=== PATIENT | female | born 2000 | race Caucasian/White ===

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

== ENCOUNTER 2019-03-15 10:06 | Emergency (ER) | payer SELFPAY ==
[~2019-03-15] VITALS: Ht 160 cm; Wt 63.3 kg
[~2019-03-15 10:06] MED LIST: AMOX1TAB10 PO; DOXY100T20 PO; IBUP-1542 PO; IBUP-1561 PO; LOPE2CAP PO; METR500T PO; ONDA4TAB14 PO; ONDA4TAB8 PO
[2019-03-15 10:07] VITALS: BP 112/75; PULSE 66; RESP 18; Ht 160 cm; Wt 63.3 kg
--- NOTE | 2019-03-15 10:40 | ERD ---
ER Documentation Chief Complaint Chief Complaint Pt with pain L wisdom pain X 1 months HPI Patient is a 18-year-old female who presents the ER for concerns of left lower wisdom tooth pain for the last month. Patient has not seen a dentist. She states she last saw the dentist 2 years ago. She denies fevers or chills. She denies any drooling, trismus, hyper extension of her neck. ROS All systems reviewed and are negative except as per history of present illness. Medications Home Meds Active Scripts Amoxicillin/Potassium Clav (Amox-Clav 875-125 mg Tablet) 875-125 mg Tab, 1 TAB PO BID for 7 Days, #14 TAB Prov:HAL MAYORGA PA-C 03/15/19 Ibuprofen* (Motrin*) 600 Mg Tab, 600 MG PO Q6, #30 TAB Prov:HAL MAYORGA PA-C 03/15/19 Ondansetron (Ondansetron Odt) 4 Mg Tab.rapdis, 4 MG PO Q6H PRN for NAUSEA AND/OR VOMITING, #10 TAB Prov:HECTOR PALOMARES PA-C 12/18/17 Ibuprofen* (Ibuprofen*) 600 Mg Tablet, 600 MG PO Q6 for 5 Days, TAB Prov:RENA BRICE 11/06/17 Loperamide Hcl* (Imodium*) 2 Mg Capsule, 2 MG PO .AFTER EA LOOSE BM PRN for DIARRHEA, #10 TAB Prov:RENA BRICE 11/06/17 Ondansetron Hcl* (Zofran*) 4 Mg Tablet, 4 MG PO Q6H for NAUSEA AND/OR VOMITING, #30 TAB Prov:RENA BRICE 11/06/17 Ibuprofen* (Motrin*) 400 Mg Tab, 400 MG PO Q6H PRN for PAIN AND OR ELEVATED TEMP, #30 TAB Prov:JANNA GREENE PA-C 10/15/17 Ibuprofen* (Motrin*) 600 Mg Tab, 600 MG PO Q6, #30 TAB Prov:KINDRA,BRADLEY 07/20/17 Doxycycline Hyclate* (Doxycycline Hyclate*) 100 Mg Tablet.dr, 100 MG PO BID for 14 Days, TAB Prov:KINDRA,BRADLEY 07/20/17 Metronidazole* (Flagyl*) 500 Mg Tablet, 500 MG PO BID for 14 Days, TAB Prov:BRADLEY ARGUELLES 07/20/17 Reported Medications [None] No Conflict Check 12/17/12 Allergies Allergies: Coded Allergies: No Known Drug Allergies (Verified Allergy, Unknown, 11/05/17) PMhx/Soc History of Surgery: Yes (appendectomy) Anesthesia Reaction: No Hx Neurological Disorder: No Hx Respiratory Disorders: No Hx Cardiac Disorders: No Hx Psychiatric Problems: No Hx Miscellaneous Medical Probl: Yes (CHOKING EPISODE WITH MEAT REMOVED SURGICALLY FROM THROAT) Hx Alcohol Use: No Hx Substance Use: No Hx Tobacco Use: No FmHx Family History: No diabetes Physical Exam Vitals Vital Signs Date Temp Pulse Resp B/P (MAP) Pulse Ox O2 O2 Flow FiO2 Time Delivery Rate 03/15/19 98.6 66 18 112/75 100 10:07 (87) Physical Exam GENERAL: Well-developed, well-nourished female. Appears in no acute distress. HEAD: Normocephalic, atraumatic. EYES: Pupils are equally reactive bilaterally. EOMs grossly intact. No conjunctival erythema. ENT: Moist mucous membranes. No uvula deviation. No kissing tonsils. Left lower wisdom tooth eruption noted. Incomplete tooth eruption. Tooth is tender to palpation. No surrounding fluctuance or induration. No trismus. No drooling. No hyper extension of the neck. NECK: Supple. No meningismus. Normal range of motion of the neck. LUNG: Clear to auscultation bilaterally. No rhonchi, wheezing, rales or coarse breath sounds. HEART: Regular rate and rhythm. No murmurs, rubs or gallops. EXTREMITIES: Equal pulses bilaterally. No peripheral clubbing, cyanosis or edema. No unilateral leg swelling. NEUROLOGIC: Alert and oriented. Moving all four extremities without any difficulty. Normal speech. Steady gait. SKIN: Normal color. Warm and dry. No rashes or lesions. Procedures/MDM MEDICAL DECISION MAKING: This is a 18-year-old female presents the ER for concerns of tooth pain.. Vital signs were reviewed. Patient was afebrile. Patient was not hypoxic. The patient did not have trismus, muffled voice, uvula deviation, unilateral tonsillar swell ing, or drooling. No signs of neck swelling or hyperextension of the neck noted. On exam, it appears that patient's was some tooth is coming out however has not completely interrupted. Patient was advised to follow-up with a dentist. Referral information provided. Will treat with antibiotics to prevent infection. Low suspicion for epiglottitis, strep pharyngitis, peritonsillar abscess, retropharyngeal abscess, Ludwigs angina, tooth fracture, bleeding dental socket, periodontal abscess, ulcerative gingivitis, dental caries, dental trauma. Patient was nontoxic, [id number] prior to discharge. PRESCRIPTIONS: Augmentin, ibuprofen DISCHARGE: At this time, patient is stable for discharge and outpatient management. I have instructed the patient to see a dentist today or tomorrow. I have instructed the patient to promptly return to the ER at any time for any new or worsening symptoms including increased pain, fever, swelling, neck swelling, neck stiffness, drooling or difficulty breathing. The patient and/or family expressed understanding of and agreement with this plan. All questions were answered. Home care instructions were provided. Disclaimer: Inadvertent spelling and grammatical errors are likely due to EHR/dictation software use and do not reflect on the overall quality of patient care. Also, please note that the electronic time recorded on this note does not necessarily reflect the actual time of the patient encounter. Departure Diagnosis: Primary Impression: Pain, dental Condition: Fair Patient Instructions: Dental Pain Referrals: [facility] ([facility] walk in clinic) Additional Instructions: Follow-up with a dentist on an outpatient basis. Call your primary care doctor TOMORROW for an appointment during the next 1-2 days.See the doctor sooner or return here if your condition worsens before your appointment time. HAL MAYORGA PA-C Mar 15, 2019 10:40
== END 2019-03-15 10:51 | disposition home or self-care (01) ==
LOC: FTE 10:06
DX: K08.89 Other specified disorders of teeth and supporting structures (principal)
CPT/HCPCS: 99283